=== PATIENT | female | born 1985 | race Caucasian/White ===

== ENCOUNTER → 2017-03-21 | Emergency (ER) | payer OTHER ==
[~2017-03-21] VITALS: Ht 170.2 cm; Wt 65.8 kg
== END | disposition home or self-care (01) ==
LOC: ER 22:11
DX: L50.0 Allergic urticaria (principal)

== ENCOUNTER 2019-01-27 10:00 | Inpatient (IN) | payer OTHER ==
[~2019-01-27] VITALS: Ht 170.2 cm; Wt 99.8 kg
[2019-02-16] MEDS ORDERED: PRENATAL TABLE1 EAC1 PO (07:19)
== END 2019-02-18 14:04 | disposition home or self-care (01) | DRG 807 ==
LOC: OB/GYN 10:00 → LDR 02-16 05:16 → OB/GYN 02-16 13:26
PROVIDERS: ADMIT Obstetrics & Gynecology Maternal & Fetal Medicine
PROC: 10E0XZZ Delivery of Products of Conception, External Approach (ICD-10-PCS; principal; 2019-02-16)
PROC: 0HQ9XZZ Repair Perineum Skin, External Approach (ICD-10-PCS; 2019-02-16)
PROC: 3E033VJ Introduction of Other Hormone into Peripheral Vein, Percutaneous Approach (ICD-10-PCS; 2019-02-16)
PROC: 10907ZC Drainage of Amniotic Fluid, Therapeutic from Products of Conception, Via Natural or Artificial Opening (ICD-10-PCS; 2019-02-16)
PROC: 4A1HXCZ Monitoring of Products of Conception, Cardiac Rate, External Approach (ICD-10-PCS; 2019-02-16)
DX: O70.1 Second degree perineal laceration during delivery (principal); Z37.0 Single live birth; Z3A.39 39 weeks gestation of pregnancy

== ENCOUNTER 2019-02-15 10:46 | Outpatient (CLI) | payer OTHER ==
[2019-02-16] MEDS ORDERED: PRENATAL TABLE1 EAC1 PO (07:19)
== END 2019-02-15 11:41 | disposition home or self-care (01) ==
LOC: NST 10:46
DX: Z34.83 Encounter for supervision of other normal pregnancy, third trimester (principal)